=== PATIENT | female | born 1975 ===

== ENCOUNTER 2019-03-21 18:40 | Emergency (ER) | payer SELFPAY ==
[~2019-03-21] VITALS: Ht 165.1 cm; Wt 68.2 kg
[2019-03-21 18:51] VITALS: BP 130/85
== END 2019-03-21 21:05 | disposition left against medical advice (07) ==
LOC: EMS 18:45
DX: R05 Cough (principal); Z53.21 Procedure and treatment not carried out due to patient leaving prior to being seen by health care provider